=== PATIENT | male | born 1955 | race Caucasian/White ===

== ENCOUNTER 2022-02-16 10:56 | Inpatient (IN) ==
[2022-02-16] MEDS ORDERED: CeFAZolin Syr 2,000MG/20 ML 2,000 MG/20 ML SYRINGE IVPB ONE (11:24)
[2022-02-16] MEDS ORDERED: Ringers Solution, Lactated 1,000 ML IVC SCH (11:30)
[2022-02-16] MEDS ORDERED: *HR* OxyCODONE Immed Rel 5 MG TABLET PO PRN (11:33)
[2022-02-16] MEDS ORDERED: Ondansetron 4 MG/2 ML VIAL IVP PRN ×2 (11:33→15:33)
[2022-02-16] MEDS ORDERED: *HR* HYDROmorphone PF 0.5 MG/0.5 ML SYRINGE IVP PRN (11:33)
[2022-02-16] MEDS ORDERED: *HR* FentaNYL (PF) 100 MCG/2 ML VIAL ONE (12:12)
[2022-02-16] MEDS ORDERED: *HR* Propofol 200 MG/20 ML VIAL IVP ONE (12:13)
[2022-02-16] MEDS ORDERED: Lidocaine -MPF 2% 5 ML VIAL ONE (12:14)
[2022-02-16] MEDS ORDERED: Ondansetron 4 MG/2 ML VIAL ONE (12:14)
[2022-02-16] MEDS ORDERED: *HR* Rocuronium Bromide 50 MG/5 ML VIAL ONE ×2 (12:14→12:47)
[2022-02-16] MEDS ORDERED: *HR* Succinylcholine 200 MG/10 ML VIAL IVP ONE (12:14)
[2022-02-16] MEDS ORDERED: *HR* Midazolam HCl 2 MG/2 ML VIAL ONE (12:19)
[2022-02-16] MEDS ORDERED: EPHEDrine 50 MG/ML VIAL ONE (12:50)
[2022-02-16] MEDS ORDERED: Ketamine HCL *QUVA* 50mg (1mL) SYRINGE ONE (12:56)
[2022-02-16] MEDS ORDERED: Sugammadex Sodium 200 MG/2 ML VIAL IV ONE (13:53)
[2022-02-16] MEDS ORDERED: *HR* HYDROMORPHONE 2 MG/ML VIAL ONE (14:26)
[2022-02-16] MEDS ORDERED: Naloxone 0.4 MG/ML INJ IVP PRN (15:33)
[2022-02-16] MEDS ORDERED: lisinopriL 5 MG TABLET PO PRN (15:33)
[2022-02-16] MEDS: 0.9 % Sodium Chloride 1,000 ML IVC SCH (15:59)
[2022-02-16] MEDS: *HR* OxyCODONE Immed Rel 15 MG TABLET PO PRN ×2 (16:04→20:25)
[2022-02-16] MEDS: carvediloL 6.25 MG TABLET PO SCH (16:08)
[2022-02-16] MEDS ORDERED: *HR* HYDROmorphone (PF) 1 MG/ML SYRINGE IVP PRN (17:54)
[2022-02-16] MEDS: Ketorolac 30 MG/ML VIAL IVP SCH (18:22)
[2022-02-16] MEDS: Mirtazapine 15 MG TABLET PO SCH (20:25)
[2022-02-16] MEDS: ALPRAZolam 0.5 MG TABLET PO SCH (20:25)
[2022-02-16] MEDS: Budesonide/Formoterol 80/4.5 1 PUFF INH IH SCH (21:00)
[2022-02-16] MEDS: *HR* Heparin 5,000 UNIT/ML VIAL SQ SCH (21:18)
[2022-02-17] MEDS: Ketorolac 30 MG/ML VIAL IVP SCH ×5 (00:05→23:20)
[2022-02-17] MEDS: 0.9 % Sodium Chloride 1,000 ML IVC SCH ×2 (04:45→18:46)
[2022-02-17] MEDS: *HR* OxyCODONE Immed Rel 15 MG TABLET PO PRN ×3 (04:49→16:38)
[2022-02-17 05:14] LABS: Hematocrit 39.4 % (37.5-50.1); Hemoglobin 12.7 g/dL (12.9-16.9); Mean Corpuscular HGB Conc 32.2 g/dL (31.6-35.5); Mean Corpuscular Hemoglobin 29.1 pg (28.0-33.3); Mean Corpuscular Volume 90.2 fL (83.0-100.0); Mean Platelet Volume 10.6 fL (9.4-12.4); Platelet Count 179 K/mcL (140-400); Red Blood Count 4.37 M/mcL (4.19-5.50); Red Cell Distribution Width 13.2 % (11.5-14.5); White Blood Count 14.9 K/mcL (4.3-11.1)
[2022-02-17 05:37] LABS: Alanine Aminotransferase 18 Units/L (7-52); Albumin 3.3 g/dL (3.5-5.7); Albumin/Globulin Ratio 1.4 (1.1-2.2); Alkaline Phosphatase 46 Units/L (34-104); Aspartate Amino Transferase 26 Units/L (13-39); BUN/Creatinine Ratio 23 (6-26); Bilirubin,Direct 0.5 mg/dL (0.0-0.2); Bilirubin,Indirect 2.3 mg/dL (0.0-1.0); Bilirubin,Total 2.8 mg/dL (0.3-1.0); Blood Urea Nitrogen 17 mg/dL (8-23); Calcium 8.4 mg/dL (8.6-10.3); Carbon Dioxide 27 mEq/L (23-29); Chloride 104 mEq/L (98-107); Globulin 2.4 g/dL (2.4-3.5); Glucose 91 mg/dL (70-105); Magnesium 1.7 mg/dL (1.6-2.6); Osmolality,Calculated 287 (280-300); Potassium 3.9 mEq/L (3.5-5.1); Sodium 138 mEq/L (136-145); Total Protein 5.7 g/dL (6.4-8.9); eGFR For African Americans > 60 (> 60); eGFR For Non-African Americans > 60 (> 60)
[2022-02-17] MEDS: *HR* Heparin 5,000 UNIT/ML VIAL SQ SCH ×3 (06:13→21:10)
[2022-02-17] MEDS: Budesonide/Formoterol 80/4.5 1 PUFF INH IH SCH ×2 (07:41→19:43)
[2022-02-17] MEDS ORDERED: Potassium Chloride Elixir 20 MEQ/15 ML UDC PO ONE (07:59)
[2022-02-17] MEDS: carvediloL 6.25 MG TABLET PO SCH ×2 (09:05→16:38)
[2022-02-17] MEDS: Pantoprazole 40 MG VIAL IVP SCH (09:05)
[2022-02-17] MEDS: ALPRAZolam 0.5 MG TABLET PO SCH ×2 (09:05→21:10)
[2022-02-17] MEDS: Mirtazapine 15 MG TABLET PO SCH (21:10)
[2022-02-18] MEDS: Ketorolac 30 MG/ML VIAL IVP SCH ×4 (06:06→23:42)
[2022-02-18] MEDS: *HR* Heparin 5,000 UNIT/ML VIAL SQ SCH ×3 (06:06→21:28)
[2022-02-18] MEDS: Budesonide/Formoterol 80/4.5 1 PUFF INH IH SCH ×2 (07:31→20:12)
[2022-02-18] MEDS: 0.9 % Sodium Chloride 1,000 ML IVC SCH (08:13)
[2022-02-18] MEDS: ALPRAZolam 0.5 MG TABLET PO SCH ×2 (08:14→19:52)
[2022-02-18] MEDS: Pantoprazole 40 MG VIAL IVP SCH (08:14)
[2022-02-18] MEDS: carvediloL 6.25 MG TABLET PO SCH ×2 (08:14→16:27)
[2022-02-18] MEDS: *HR* OxyCODONE Immed Rel 15 MG TABLET PO PRN ×2 (16:31→21:28)
[2022-02-18] MEDS: Mirtazapine 15 MG TABLET PO SCH (19:53)
[2022-02-19] MEDS: 0.9 % Sodium Chloride 1,000 ML IVC SCH
[2022-02-19] MEDS: Ketorolac 30 MG/ML VIAL IVP SCH (05:58)
[2022-02-19] MEDS: *HR* Heparin 5,000 UNIT/ML VIAL SQ SCH (05:58)
[2022-02-19 08:00] VITALS: BP 173/80; O2SAT 100
[2022-02-19] MEDS: *HR* OxyCODONE Immed Rel 15 MG TABLET PO PRN (08:07)
[2022-02-19] MEDS: ALPRAZolam 0.5 MG TABLET PO SCH (08:08)
[2022-02-19] MEDS: carvediloL 6.25 MG TABLET PO SCH (08:08)
[2022-02-19 09:39] VITALS: PULSE 65
[2022-02-19 09:40] VITALS: TEMP 98
== END 2022-02-19 10:46 | disposition home or self-care (01) | DRG 327 ==
LOC: SAMDAY 10:56 → 2NNU 15:37
PROVIDERS: ADMIT Thoracic Surgery (Cardiothoracic Vascular Surgery); ATTEND Thoracic Surgery (Cardiothoracic Vascular Surgery)